=== PATIENT | male | born 1980 | race Caucasian/White ===

== ENCOUNTER 2017-11-22 18:05 | Emergency (ER) | payer MEDICAID ==
--- NOTE | 2017-11-22 18:18 | EDM.PDOC ---
<Hermelindo Mcqueen - Last Filed: 11/22/17 18:17> ED HPI GENERAL MEDICAL PROBLEM - General Chief Complaint: Genitourinary Problem Stated Complaint: TESTICLE PAIN Time Seen by Provider: 11/22/17 18:17 - Related Data Allergies Allergy/AdvReac Type Severity Reaction Status Date / Time No Known Allergies Allergy Verified 07/23/15 19:19 Home Meds: Home Meds Catheter [Self-Cath] 1 each MC DAILY #30 each 11/22/17 [Rx] Dalfampridine [Ampyra] 10 mg PO BID 11/22/17 [History] Ibuprofen 600 mg PO TID PRN #40 tablet 11/22/17 [Rx] Levofloxacin 500 mg PO DAILY #10 tablet 11/22/17 [Rx] oxyCODONE 5 mg PO QID PRN #8 tab 11/22/17 [Rx] riTUXimab [Rituxan] 0 mg IV Q6M 11/22/17 [History] Past Medical History Genitourinary History: Reports: Other (See Below), Urinary Incontinence Other Genitourinary History: urgency Musculoskeletal History: Reports: Other (See Below) Other Musculoskeletal History: MS Neurological History: Reports: MS - Past Surgical History HEENT Surgical History: Reports: Adenoidectomy, Tonsillectomy Social & Family History - Living Situation & Occupation Living situation: Reports: with Family, Single Occupation: Unemployed Course - Vital Signs Last Recorded V/S: Last Vital Signs Temp 37.0 C 11/22/17 18:31 Pulse 96 11/22/17 18:31 Resp 20 11/22/17 18:31 BP 148/93 H 11/22/17 18:31 Pulse Ox 100 11/22/17 18:31 - Orders/Labs/Meds Orders: Active Orders 24 hr Category Date Time Status Insert Urinary Catheter [OM.PC] Q24H Care 11/22/17 22:00 Ordered Urinary Catheter Assessment [RC] ASDIRECTED Care 11/22/17 21:50 Active Scrotum and Contents [US] Stat Exams 11/22/17 19:02 Taken Morphine Med 11/22/17 19:29 Active 4 mg IVPUSH Q2H PRN Medication Orders Morphine Sulfate (Morphine) 4 mg IVPUSH Q2H PRN PRN Reason: Pain Labs: Laboratory Tests 11/22/17 11/22/17 11/22/17 Range/Units 18:30 19:08 19:08 WBC 6.26 (4.23-9.07) K/mm3 RBC 4.79 (4.63-6.08) M/mm3 Hgb 14.0 (13.7-17.5) gm/L Hct 40.2 (40.1-51.0) % MCV 83.9 (79.0-92.2) fl MCH 29.2 (25.7-32.2) pg MCHC 34.8 (32.2-35.5) g/dl RDW Std Deviation 36.8 (35.1-43.9) fL Plt Count 299 (163-337) K/mm3 MPV 7.9 L (9.4-12.3) fl Neut % (Auto) 65.2 (34.0-67.9) % Lymph % (Auto) 19.2 L (21.8-53.1) % [place] % (Auto) 14.2 H (5.3-12.2) % Eos % (Auto) 1.0 (0.8-7.0) Baso % (Auto) 0.2 (0.1-1.2) % Neut # (Auto) 4.09 (1.78-5.38) K/mm3 Lymph # (Auto) 1.20 L (1.32-3.57) K/mm3 [place] # (Auto) 0.89 H (0.30-0.82) K/mm3 Eos # (Auto) 0.06 (0.04-0.54) K/mm3 Baso # (Auto) 0.01 (0.01-0.08) K/mm3 Manual Slide Review Normal smear Sodium 136 (136-145) mEq/L Potassium 3.7 (3.5-5.1) mEq/L Chloride 100 (98-107) mEq/L Carbon Dioxide 28 (21-32) mEq/L Anion Gap 11.7 (5-15) BUN 8 (7-18) mg/dL Creatinine 0.9 (0.7-1.3) mg/dL Est Cr Clr Drug Dosing 101.92 mL/min Estimated GFR (MDRD) > 60 (>60) mL/min BUN/Creatinine Ratio 8.9 L (14-18) Glucose 94 (74-106) mg/dL Calcium 8.6 (8.5-10.1) mg/dL Total Bilirubin 0.3 (0.2-1.0) mg/dL AST 19 (15-37) U/L ALT 32 (16-63) U/L Alkaline Phosphatase 83 (46-116) U/L Total Protein 6.9 (6.4-8.2) g/dl Albumin 3.9 (3.4-5.0) g/dl Globulin 3.0 gm/dL Albumin/Globulin Ratio 1.3 (1-2) Urine Color Light yellow (Yellow) Urine Appearance Clear (Clear) Urine pH 7.0 (5.0-8.0) Ur Specific [place] 1.020 (1.005-1.030) Urine Protein Negative (Negative) Urine Glucose (UA) Negative (Negative) Urine Ketones Negative (Negative) Urine Occult Blood Negative (Negative) Urine Nitrite Negative (Negative) Urine Bilirubin Negative (Negative) Urine Urobilinogen 0.2 (0.2-1.0) Ur Leukocyte Esterase Negative (Negative) Urine RBC 0-5 (0-5) /hpf Urine WBC 0-5 (0-5) /hpf Ur Epithelial Cells 0-5 (0-5) /hpf Urine Bacteria Not seen (FEW) /hpf Urine Mucus Not seen (FEW) /hpf Meds: Medications Generic Name Dose Route Start Last Admin Trade Name Freq PRN Reason Stop Dose Admin Morphine Sulfate 4 mg 11/22/17 19:29 Morphine IVPUSH Q2H PRN Pain Discontinued Medications Generic Name Dose Route Start Last Admin Trade Name Luciana PRN Reason Stop Dose Admin Azithromycin 1,000 mg 11/22/17 21:08 11/22/17 21:30 Zithromax PO 11/22/17 21:09 1,000 mg ONETIME ONE Administration Ceftriaxone Sodium 250 mg 11/22/17 21:15 11/22/17 21:28 Rocephin IM Not Given Q24H RAMONE Ceftriaxone Sodium 0.25 gm 11/22/17 21:21 11/22/17 21:31 Rocephin IM 11/22/17 21:22 0.25 gm ONETIME ONE Administration Fentanyl 75 mcg 11/22/17 19:02 11/22/17 19:14 Sublimaze IVPUSH 11/22/17 19:03 75 mcg ONETIME ONE Administration Oxycodone HCl 5 mg 11/22/17 21:20 11/22/17 21:29 Oxycodone PO 11/22/17 21:21 5 mg ONETIME ONE Administration Departure - Departure Disposition: Home, Self-Care 01 Clinical Impression: Epididymitis with no abscess, Urinary retention - Discharge Information Prescriptions: Catheter [Self-Cath] 1 each MC DAILY #30 each Ibuprofen 600 mg PO TID PRN #40 tablet PRN Reason: Pain Levofloxacin 500 mg PO DAILY #10 tablet oxyCODONE 5 mg PO QID PRN #8 tab PRN Reason: Pain Instructions: Epididymitis Referrals: PCP,None [Primary Care Provider] - Forms: ED Department Discharge Additional Instructions: 1. Take levofloxacin (antibiotic) as prescribed. First dose tomorrow. 2. Take ibuprofen as prescribed for pain. Take oxycodone for severe pain. Oxycodone can cause sleepiness or confusion so caution with this med. 3. Return to the ED if you have worsening pain/swelling, fever, difficulty urinating, or other concerning symptoms. 4. Otherwise follow-up with Dr. Escoto as planned. 5. Consider restarting self-cathing to drain your bladder 1-2 times daily. You are retaining a significant amount of urine. - My Orders Last 24 Hours: My Active Orders 11/22/17 19:02 Scrotum and Contents [US] Stat 11/22/17 19:29 Morphine 4 mg IVPUSH Q2H PRN 11/22/17 21:50 Urinary Catheter Assessment [RC] ASDIRECTED 11/22/17 22:00 Insert Urinary Catheter [OM.PC] Q24H - Assessment/Plan Last 24 Hours: My Active Orders 11/22/17 19:02 Scrotum and Contents [US] Stat 11/22/17 19:29 Morphine 4 mg IVPUSH Q2H PRN 11/22/17 21:50 Urinary Catheter Assessment [RC] ASDIRECTED 11/22/17 22:00 Insert Urinary Catheter [OM.PC] Q24H <Cony Patiño - Last Filed: 11/22/17 22:23> ED HPI GENERAL MEDICAL PROBLEM - General Source of Information: Reports: Patient History Limitations: Reports: No Limitations - History of Present Illness INITIAL COMMENTS - FREE TEXT/NARRATIVE: 37 y/o M with hx MS presents with scrotal pain/swelling. Present for a few days , worse over past day. Pain worse with movement or palpation. Pain is currently severe. Hasn't taken anything for pain today. No hx similar symptoms previously. No trauma. No fever. No abdominal or flank pain. Previously was self -cathing for urinary retention related to MS diagnosis, hasn't been doing that lately. Able to urinate, unsure whether he's completely emptying his bladder. Mild dysuria, no hematuria. Recently moved here from [place], hasn't seen a PCP yet though saw a neurologist in [place] and has an appointment with Dr. Escoto scheduled for the end of this month. Denies any recent history of sexual activity. ED ROS GENERAL - Review of Systems Review Of Systems: See Below Constitutional: Denies: Fever HEENT: Reports: No Symptoms Respiratory: Reports: No Symptoms Cardiovascular: Reports: No Symptoms Endocrine: Reports: No Symptoms GI/Abdominal: Denies: Vomiting : Reports: Dysuria, Pain Musculoskeletal: Reports: No Symptoms Skin: Reports: No Symptoms Neurological: Reports: No Symptoms Psychiatric: Reports: No Symptoms Hematologic/Lymphatic: Reports: No Symptoms Immunologic: Reports: No Symptoms ED EXAM, RENAL/ - Physical Exam Exam: See Below Exam Limited By: No Limitations General Appearance: Alert, WD/WN, No Apparent Distress Ears: Normal External Exam Nose: Normal Inspection Throat/Mouth: Normal Inspection, Normal Oropharynx, Normal Voice Head: Atraumatic, Normocephalic Neck: Normal Inspection Respiratory/Chest: No Respiratory Distress, Lungs Clear, Normal Breath Sounds Cardiovascular: Normal Peripheral Pulses, Regular Rate, Rhythm GI/Abdominal: Soft, Non-Tender, No Distention. No: Rebound (Male) Exam: No Hernia, Normal Inspection, Scrotum Tenderness (L), Scrotum Tenderness (R), Testicular Tenderness (L), Testicular Tenderness (R). No: Inguinal Lymphadenopathy, Urethral Discharge Back Exam: Normal Inspection Extremities: Normal Inspection Neurological: Alert, Oriented, Normal Cognition, No Motor/Sensory Deficits Psychiatric: Normal Affect, Normal Mood Skin Exam: Warm, Dry, Intact, Normal Color, No Rash Course - Re-Assessments/Exams Free Text/Narrative Re-Assessment/Exam: 11/22/17 21:29 Normal CBC/Chem. UA neg. Scrotal u/s shows no evidence of torsion, possible bilateral epididymitis. This would be consistent with his exam. Will treat. Bladder scan showed PVR of 180, discussed this with patient and encouraged him to resume self-cathing. Discussed return precautions. Free Text/Narrative Re-Assessment/Exam: 11/22/17 22:23 I saw the patient independently and have reviewed and confirmed the history, exam, review of systems and past/family and medical history, and medical decision making as documented by the medical student. I have edited the note to reflect my findings. Departure - Departure Time of Disposition: 21:22
[2017-11-22 18:34] VITALS: BP 148/93
[2017-11-22] MEDS ORDERED: fentaNYL 100 MCG/2 ML SDV IVPUSH ONE (19:02)
[2017-11-22] MEDS ORDERED: Morphine 4 MG/ML Syringe IVPUSH PRN (19:29)
[2017-11-22] MEDS ORDERED: Azithromycin 250 MG Tab PO ONE (21:08)
[2017-11-22] MEDS ORDERED: cefTRIAXone 1,000 MG VIAL IM SCH (21:15)
[2017-11-22] MEDS ORDERED: oxyCODONE 5 MG Tab PO ONE (21:20)
[2017-11-22] MEDS ORDERED: cefTRIAXone 1 GM Vial IM ONE (21:21)
--- NOTE | 2017-11-23 15:24 | US ---
Testicular ultrasound: Multiple real-time images of the testicles were obtained. Comparison: No previous study. Both testicles have a homogeneous ultrasound appearance. No intratesticular abnormality is seen. Both arterial and venous blood flow are seen within both testicles. Both epididymis show increased vascularity. No hydrocele is seen. Left epididymal cyst is seen measuring 1.3 cm. Measurements: Right testicle: 5.2 x 2.5 x 3.2 cm Left testicle: 5.2 x 2.4 x 3.3 cm Impression: 1. Increased vascularity within both epididymis suspicious for bilateral epididymitis. 2. No intratesticular abnormality is seen. 3. Incidental left epididymal cyst. Diagnostic code #3 I agree with preliminary report issued by [facility] ([facility] report finalized on 11/22/17, 9:51 PM Central Time)
== END 2017-11-22 21:45 | disposition home or self-care (01) ==
LOC: JD.ED 18:05
DX: N45.1 Epididymitis (principal); R33.9 Retention of urine, unspecified
CPT/HCPCS: 36415; 51798; 76870; 80053; 81001; 85025; 93975; 96372; 96374; 99284; A9270; J0696; J3010